=== PATIENT | male | born 1975 | race Caucasian/White ===

== ENCOUNTER 2017-08-03 11:12 | Emergency (ER) | payer SELFPAY ==
[2017-08-03] MEDS ORDERED: diphenhydrAMINE 25 MG CAP ONE (11:31)
[2017-08-03] MEDS ORDERED: Famotidine 20 MG TAB ONE (11:31)
[2017-08-03] MEDS ORDERED: methylPREDNISolone Sod Succ/PF 125 MG/2 ML VIAL ONE (11:31)
[2017-08-03] MEDS ORDERED: Sterile Water 10 ML ONE (11:32)
== END 2017-08-03 11:40 | disposition home or self-care (01) ==
LOC: MADERS 11:12
DX: L23.7 Allergic contact dermatitis due to plants, except food (principal); F17.290 Nicotine dependence, other tobacco product, uncomplicated; Z86.73 Personal history of transient ischemic attack (TIA), and cerebral infarction without residual deficits
CPT/HCPCS: 96372; A4216; J2930

== ENCOUNTER 2024-09-15 12:29 | Emergency (ER) | payer OTHER ==
[2024-09-15] MEDS ORDERED: Ondansetron PF 4 MG/2 ML Vial ONE (12:55)
[2024-09-15] MEDS ORDERED: Ketorolac Tromethamine 30 MG (1 mL) VIAL ONE (13:20)
== END 2024-09-15 14:47 | disposition home or self-care (01) ==
LOC: MADERS 12:29
DX: S69.92XA Unspecified injury of left wrist, hand and finger(s), initial encounter (principal); S49.92XA Unspecified injury of left shoulder and upper arm, initial encounter; F17.200 Nicotine dependence, unspecified, uncomplicated; W31.89XA Contact with other specified machinery, initial encounter
CPT/HCPCS: 96374; 96375; 96376; J1885; J2270; J2405